=== PATIENT | male | born 1990 ===

== ENCOUNTER 2019-10-07 12:09 | Emergency (ER) | payer SELFPAY ==
[2019-10-07 12:14] VITALS: BP 115/81; PULSE 93; RESP 18; TEMP 36.6; O2SAT 98; BMI 24.3
--- NOTE | 2019-10-07 12:14 | W.ED.GENADLT ---
HPI - General Adult General: Chief complaint: General Medical Stated complaint: weakness/feels sick Time Seen by Provider: 10/07/19 12:11 Source: patient Mode of arrival: ambulatory Limitations: no limitations History of Present Illness: HPI narrative: Patient is a 29-year-old male who presents to ED today stating I do not feel good . Patient states he has felt very tired and fatigued over the past few days causing him to miss work. He reports a productive cough, and chest/nasal congestion. Also complains of some chills. No fevers. He does not complain of abdominal pain, nausea, vomiting, diarrhea. No urinary symptoms. He denies lightheadedness, dizziness, headache, visual changes. Onset (ago): day(s) Relieving factors: none Exacerbating factors: none Associated symptoms: Reports malaise; Deny chest pain, diaphoresis, dyspnea, headache(s), nausea, rash, palpitations, syncope or vomiting Treatments prior to arrival: none Review of Systems Const: Reports: chills, fatigue and malaise; Denies: fever, body aches, change in appetite, change in weight, night sweats or diaphoresis Eyes: Denies: change in vision or blurry vision ENMT: Reports: nasal congestion; Denies: enlarged tonsils or painful swallowing Card: Denies: chest pain, palpitations, irregular heart rhythm, lightheadedness, syncope or shortness of breath on exertion Resp: Denies: shortness of breath, productive cough or pain on inspiration GI: Denies: abdominal pain, nausea, vomiting, heartburn/indigestion or diarrhea : Denies: difficulty urinating or painful urination Musc: Denies: neck pain, back pain or joint pain Skin/Breast: Denies: rash Neuro: Denies: headache PFSH ED PFSH: Statuses (acute, chronic, etc) shown below reflect problem list status as previously entered and may not be historically accurate Social History Smoking and tobacco status: current every day smoker Physical Exam Const: COMMON NORMALS: no apparent distress, oriented x3, no limitations, alert and well nourished HENMT: COMMON NORMALS: normocephalic, head/scalp atraumatic, EAC's normal and TM's normal bilaterally HEAD & SCALP: normocephalic and atraumatic FACE & SINUS: sinus tenderness (mild maxillary) EXTERNAL AUDITORY CANAL: EAC's normal TYMPANIC MEMBRANE: TM's normal bilaterally MOUTH: oral and palatal mucosa normal THROAT: posterior oropharynx normal, tonsils normal and uvula midline Eye: COMMON NORMALS: PERRL and EOMs intact bilaterally PUPIL: Yes PERRL Neck/C-Spine: COMMON NORMALS: full ROM, no lymphadenopathy, supple and no meningeal signs Resp: COMMON NORMALS: normal respiratory effort and clear to auscultation bilaterally AUSCULTATION: clear to auscultation bilaterally Cardio: COMMON NORMALS: regular rate and regular rhythm RATE: regular rate RHYTHM: regular rhythm GI: COMMON NORMALS: normal to inspection, nondistended, normoactive bowel sounds, soft to palpation, non-tender, no hepatosplenomegaly and no masses PALPATION: Yes soft and Yes no hepatosplenomegaly : COMMON NORMALS: Yes no CVA tenderness BLADDER/KIDNEY EXAM: Yes no CVA tenderness Back/Pelvis: COMMON NORMALS: no CVA tenderness and thoracic and lumbar spine normal to inspection Extremity: COMMON NORMALS: normal to inspection Neuro: COMMON NORMALS: oriented x3 SENSORIUM/ORIENTATION: Yes alert MENINGEAL SIGNS: Yes no meningeal signs Skin: COMMON NORMALS: no rashes or lesions noted GENERAL SKIN EXAM: no rashes or lesions noted Course Vital Signs: Vital signs: Vital Signs Temperature 97.8 F 10/07/19 12:14 Pulse Rate 93 10/07/19 12:14 Respiratory Rate 18 10/07/19 12:14 Blood Pressure 115/81 10/07/19 12:14 Pulse Oximetry 98 10/07/19 12:14 MDM - General Adult MDM Narrative: Medical decision making narrative: Patient clinically appears in no acute distress. Labs are essentially benign. He did have a glucose of 175-discussed this needs to be repeated fasting on an outpatient basis. We will have case management set him up with a PCP. Patient tells me his daughter is a type I diabetic but does not know of any other family members with type 1 diabetes. He does not complain of polydipsia, polyuria, lightheadedness/dizziness, shakiness, abdominal pain/vomiting/diarrhea. Patient's influenza swab here is negative. CXR is normal. Patient is stable to be discharged Lab Data: Labs: Lab Results 01/31/20 01/31/20 01/31/20 Range/Units 12:27 12:27 12:37 WBC 5.8 (4.0-10.0) 10^3/ uL RBC 5.43 H (4.1-5.3) 10^6/u L Hgb 16.2 (11.7-16.6) g/dL Hct 47.8 (42.0-52.0) % MCV 88.0 (80-94) fL MCH 29.8 (28.0-34.0) pg MCHC 33.9 (30.0-36.0) g/dL RDW 11.8 L (12.1-15.1) % Plt Count 419 H (130-400) 10^3/c mm MPV 9.5 (7.4-10.4) fL Neut % (Auto) 62.2 % Lymph % (Auto) 25.4 % Mcdonald % (Auto) 10.0 % Eos % (Auto) 1.9 % Baso % (Auto) 0.3 % Neut # (Auto) 3.6 (1.8-7.7) 10^3/u L Lymph # (Auto) 1.5 (0.8-4.8) 10^3/u L Mcdonald # (Auto) 0.6 (0.2-0.9) 10^3/u L Eos # (Auto) 0.1 (0.0-0.8) 10^3/u L Baso # (Auto) 0.0 (0.0-0.1) 10^3/u L Nucleated RBC % (a uto) 0 % Nucleated RBCs # 0.0 /100WBC Sodium 137 (136-145) mmol/L Potassium 4.1 (3.5-5.1) mmol/L Chloride 101 (98-107) mmol/L Carbon Dioxide 25 (22-29) mmol/L Anion Gap 15.1 (5-19) BUN 10 (6-20) mg/dL Creatinine 1.0 (0.7-1.2) mg/dL GFR Calculation 87.2 L (90-130) mL/min Glucose 175 H (74-109) mg/dL Calcium 9.9 (8.5-10.5) mg/dL Total Bilirubin 0.5 (0.15-1.2) mg/dL AST 19 (0-40) U/L ALT 15 (0-41) U/L Alkaline Phosphata se 70 (40-130) IU/L Total Protein 7.5 (6.6-8.7) g/dL Albumin 4.6 (3.5-5.2) g/dL Globulin 2.9 (1.3-4.6) g/dL Influenza Type A A g Negative (Negative) POC Influenza B Ag Negative (Negative) Imaging Data^: CXR: Radiologist's impression: [address] [id number] XRay Report Signed Patient: Ab Woods Unit #: [id number] : 1990 Age/Sex: 29 / M ADM Date: 10/07/19 Loc: ER Room/Bed: Attending Dr: Ordering Provider/Ordering MD: Shayna Alcaraz Date of Service: 10/07/19 Procedure(s): XR chest 1V portable [id number] Accession Number(s): [id number] Report Number: [id number] WS: [id number] Portable AP upright chest, 10/07/2019 Clinical Data: cough/congestion Comparison: None Findings: No nodules, masses or effusions are seen. The heart is normal. The pulmonary vascularity is not increased. No pneumonia or pneumothorax is seen. XR/XR chest 1V portable [id number] Impression: Negative chest. Dictated By: Reina Egan MD Signed By: Reina Egan MD Signed Date/Time: 10/07/191243 DD/ 1243 Discharge Plan Discharge Patient Disposition: Home, Self-Care Clinical Impression: Fatigue Qualifiers: Fatigue type: unspecified Qualified Code(s): R53.83 - Other fatigue Condition: Stable Prescriptions: No Action No Known Home Medications RF: 0 Discharge Orders: Discharge Order (Routine); Ordered 10/07/19 Ordered By: Shayna Alcaraz Referrals: Adrian Garner MD [Family Provider] - Discharge Diet: Usual diet Discharge Activity: Increase activity as tolerated Coding Level of Care Code ED Trimming Operator for Chg Fwd Exam Problem Focused
--- NOTE | 2019-10-07 12:22 | XR_ITS ---
WS: [id number] Portable AP upright chest, 10/07/2019 Clinical Data: cough/congestion Comparison: None Findings: No nodules, masses or effusions are seen. The heart is normal. The pulmonary vascularity is not increased. No pneumonia or pneumothorax is seen. XR/XR chest 1V portable [id number] Impression: Negative chest.
[2019-10-07 12:33] LABS: Basophils % 0.3 %; Eosinophils # 0.1 10^3/uL (0.0-0.8); Eosinophils % 1.9 %; Hematocrit 47.8 % (42.0-52.0); Hemoglobin 16.2 g/dL (11.7-16.6); Lymphocytes # 1.5 10^3/uL (0.8-4.8); Lymphocytes % 25.4 %; Mean Corpuscular HGB Conc 33.9 g/dL (30.0-36.0); Mean Corpuscular Hemoglobin 29.8 pg (28.0-34.0); Mean Platelet Volume 9.5 fL (7.4-10.4); Monocytes # 0.6 10^3/uL (0.2-0.9); Neutrophils # 3.6 10^3/uL (1.8-7.7); Neutrophils % 62.2 %; Nucleated Red Blood Cells % 0 %; Platelet Count 419 10^3/cmm (130-400); Red Blood Count 5.43 10^6/uL (4.1-5.3); Red Cell Distribution Width 11.8 % (12.1-15.1); White Blood Count 5.8 10^3/uL (4.0-10.0)
[2019-10-07 13:18] LABS: Alanine Aminotransferase 15 U/L (0-41); Albumin Level 4.6 g/dL (3.5-5.2); Alkaline Phosphatase 70 IU/L (40-130); Anion Gap 15.1 (5-19); Aspartate Amino Transferase 19 U/L (0-40); Blood Urea Nitrogen 10 mg/dL (6-20); Calcium 9.9 mg/dL (8.5-10.5); Carbon Dioxide 25 mmol/L (22-29); Chloride 101 mmol/L (98-107); Globulin 2.9 g/dL (1.3-4.6); Glomerular Filtration Rate 87.2 mL/min (90-130); Glucose 175 mg/dL (74-109); Potassium 4.1 mmol/L (3.5-5.1); Sodium 137 mmol/L (136-145); Total Bilirubin 0.5 mg/dL (0.15-1.2); Total Protein 7.5 g/dL (6.6-8.7)
[2019-10-07 13:21] LABS: Influenza A by IFA Negative (Negative); Influenza B by IFA Negative (Negative)
[2019-10-07 13:53] VITALS: BP 124/67; PULSE 78; RESP 18; O2SAT 98
--- NOTE | 2019-10-11 12:50 | DCPLANNER ---
valuation manager had message to speak with patient about getting established with a primary care physician. valuation manager called patient, unable to speak with patient at this time, and unable to leave a voicemail for patient, due to no voicemail set up.
== END 2019-10-07 13:54 | disposition home or self-care (01) ==
PROVIDERS: Emergency Provider Physician Assistant
DX: R53.83 Other fatigue (principal); F17.210 Nicotine dependence, cigarettes, uncomplicated
CPT/HCPCS: 71045; 80053; 85025; 87804; 99281; 99283